=== PATIENT | male | born 1955 | race Caucasian/White ===

== ENCOUNTER → 2016-10-18 | Outpatient (CLI) | payer BC ==
--- NOTE | 2016-10-19 02:24 | REP ---
Clinical: Back pain. Technique: AP, lateral, bilateral oblique, and coned-down views of the lumbosacral spine. Findings: Alignment and lordosis maintained. No acute fracture / compression injury or subluxation. Moderate multilevel degenerative changes include endplate sclerosis with subtle anterior spurring. Minimal disc space narrowing at the T12-L1, L1-L2 levels suggested. Impression: Mild to moderate multilevel degenerative changes suggested. Signed by Giovanny Meng MD 10/19/2016 02:15 A
--- NOTE | 2016-10-19 02:27 | REP ---
Clinical: Back and pelvic pain. Technique: Single AP view of the pelvis. Findings: Osseous structures and joint spaces appear intact, symmetric, and the relatively normal for age. Subtle lipping along the superior acetabular margins along with increased sclerosis and mild symmetric superior joint space narrowing is suggested. No evidence for acute or healed fracture/dislocation. No periarticular calcifications are identified. Surrounding soft tissues appear normal. Impression: Mild symmetric age-related changes to the bilateral hip joints. Signed by Giovanny Meng MD 10/19/2016 02:19 A
--- NOTE | 2016-10-19 02:28 | REP ---
Clinical: Pain. Technique: Neutral and frog lateral views of the right hip. Findings: Superior joint space narrowing is appreciated with subchondral sclerosis and subtle lipping along the acetabular margin. No periarticular calcifications are appreciated. Osseous structures otherwise appear normal. No evidence for acute or healed fracture/dislocation. Impression: Mild age-related degenerative changes suggested. Signed by Giovanny Meng MD 10/19/2016 02:20 A
== END | disposition home or self-care (01) ==
LOC: M RAD 16:45
PROVIDERS: ATTEND Family Medicine
DX: M54.9 Dorsalgia, unspecified (principal); M16.11 Unilateral primary osteoarthritis, right hip; M51.35 Other intervertebral disc degeneration, thoracolumbar region; M51.06 Intervertebral disc disorders with myelopathy, lumbar region

== ENCOUNTER → 2018-03-06 | Outpatient (REF) | payer OTHER ==
[2018-03-06 13:14] LABS: HEMATOCRIT 43.7 % (42.0-52.0); HEMOGLOBIN 14.8 g/dl (13.5-17.5); MEAN CORPUSCULAR HEMOGLOBIN 31.7 pg (27.0-33.0); MEAN CORPUSCULAR HGB CONC 33.9 g/dl (32.0-36.5); MEAN CORPUSCULAR VOLUME 93.6 fl (80.0-96.0); PLATELET COUNT, AUTOMATED 217 10^3/uL (150-450); RED BLOOD COUNT 4.67 10^6/uL (4.30-6.10); WHITE BLOOD COUNT 6.9 10^3/uL (4.0-10.0)
[2018-03-06 13:24] LABS: INR 0.83; PARTIAL THROMBOPLASTIN TIME 30.6 SECONDS (26.8-37.9); PROTHROMBIN TIME 11.4 SECONDS (12.4-14.5)
[2018-03-06 13:53] LABS: ALBUMIN 4.1 GM/DL (3.2-5.2); ALBUMIN/GLOBULIN RATIO 1.41 (1.00-1.93); ALKALINE PHOSPHATASE 82 U/L (45-117); ALT/SGPT 28 U/L (12-78); ANION GAP 5 MEQ/L (8-16); AST/SGOT 25 U/L (7-37); BILIRUBIN,TOTAL 0.8 MG/DL (0.2-1.0); BLOOD UREA NITROGEN 13 MG/DL (7-18); CALCIUM LEVEL 9.1 MG/DL (8.8-10.2); CARBON DIOXIDE LEVEL 29 MEQ/L (21-32); CHLORIDE LEVEL 107 MEQ/L (98-107); GLOMERULAR FILTRATION RATE > 60.0 (>49); GLUCOSE, FASTING 82 MG/DL (70-100); POTASSIUM SERUM 4.4 MEQ/L (3.5-5.1); SODIUM LEVEL 141 MEQ/L (136-145)
== END ==
LOC: M SFHCPLAZ 11:53
DX: Z01.818 Encounter for other preprocedural examination (principal)

== ENCOUNTER 2018-10-25 09:11 | Emergency (ER) | payer OTHER, SELFPAY ==
[~2018-10-25] VITALS: Ht 172.7 cm; Wt 84.8 kg
[2018-10-25] MEDS ORDERED: IBUP-1022 (09:20)
--- NOTE | 2018-10-25 10:26 | REP ---
Clinical: Left groin pain. Technique: Real time uribe scale and color evaluation using curved array transducer. Findings: Ultrasound examination of the left groin with right groin for comparison demonstrates no hernia. No fluid collection or mass lesion identified. Left-sided lymph nodes at the site of pain/palpable mass are identified measuring 2.2 x 1.1 x 1.4 cm, 1.3 x 0.8 x 0.8 cm, and 4.1 x 1.5 x 3.5 cm and appear mildly prominent and hyperemic as compared to a normal lymph nodes in the right groin. Impression: Findings compatible with left inguinal adenopathy. No hernia. Electronically Signed by Giovanny Meng MD 10/25/2018 10:17 A
[2018-10-25 11:06] LABS: BASO # 0.1 10^3/uL (0.0-0.2); BASO % 0.7 % (0.0-1.0); EOS # 0.2 10^3/uL (0.0-0.50); EOS % 2.1 % (0.0-3.0); HEMATOCRIT 45.5 % (42.0-52.0); HEMOGLOBIN 15.4 g/dl (13.5-17.5); LYMPH # 1.3 10^3/uL (1.5-4.5); LYMPH % 17.4 % (24.0-44.0); MEAN CORPUSCULAR HEMOGLOBIN 31.4 pg (27.0-33.0); MEAN CORPUSCULAR HGB CONC 33.8 g/dl (32.0-36.5); MEAN CORPUSCULAR VOLUME 92.9 fl (80.0-96.0); MONO # 0.6 10^3/uL (0.0-0.8); MONO % 8.3 % (0.0-5.0); NEUTROPHILS # 5.2 10^3/uL (1.8-7.7); NEUTROPHILS % 71.4 % (36.0-66.0); PLATELET COUNT, AUTOMATED 204 10^3/uL (150-450); WHITE BLOOD COUNT 7.2 10^3/uL (4.0-10.0)
[2018-10-25 11:35] LABS: ALBUMIN 3.7 GM/DL (3.2-5.2); ALT/SGPT 50 U/L (12-78); BILIRUBIN,DIRECT 0.2 MG/DL (0.0-0.2); BILIRUBIN,TOTAL 0.6 MG/DL (0.2-1.0); BLOOD UREA NITROGEN 15 MG/DL (7-18); CALCIUM LEVEL 8.5 MG/DL (8.8-10.2); CARBON DIOXIDE LEVEL 28 MEQ/L (21-32); CHLORIDE LEVEL 107 MEQ/L (98-107); CREATININE FOR GFR 0.85 MG/DL (0.70-1.30); GLOMERULAR FILTRATION RATE > 60.0 (>49); GLUCOSE, FASTING 106 MG/DL (70-100); LIPASE 108 U/L (73-393); SODIUM LEVEL 139 MEQ/L (136-145); TOTAL PROTEIN 6.6 GM/DL (6.4-8.2)
[2018-10-25] MEDS ORDERED: ISOVUE-370 76% 100ML VIAL (Q9967) As Ordered ONE (11:46)
--- NOTE | 2018-10-25 12:21 | REP ---
Clinical: Left lower abdominal and left groin pain. Technique: Axial contrast enhanced images from the lung bases to the pubic symphysis using 100 ml Isovue 370 intravenous contrast material with coronal and sagittal re-formations. Findings: With regards to the patient's symptoms, there is inflammatory adenopathy at the level of the left groin with the largest hyperemic lymph node measuring approximately 3.1 x 2.0 cm with very subtle inflammatory stranding in the surrounding subcutaneous tissue. These findings are of uncertain etiology and warrant further investigation. Fatty infiltration to the liver without focal hepatic lesion. Spleen, pancreas, gallbladder, bilateral adrenal glands and kidneys are normal. The enteric system is without obstruction or acute inflammatory process. Normal terminal ileum and appendix identified in the right lower quadrant. Scattered sigmoid diverticula noted without acute diverticulitis. Pelvis demonstrates normal bladder and age appropriate prostate/seminal vesicles. Evidence of prior right inguinal hernia repair. No left inguinal hernia noted. No ascites. No free air. No adenopathy. Abdominal aorta without aneurysm or dissection. Impression: 1. Inflammatory adenopathy in the left groin. Electronically Signed by Giovanny Meng MD 10/25/2018 12:13 P
[2018-10-25] MEDS ORDERED: DOXYCYCLINE HYCLATE 100 MG TAB PO ONE (12:30)
[2018-10-25] MEDS ORDERED: cefTRIAXone SOD 2 GM in D5W MINI-BAG PLUS 50 ML IV ONE (12:30)
[2018-10-25] MEDS ORDERED: DOXY100C37 PO (12:36)
[2018-10-25 13:13] VITALS: BP 135/86
[2018-10-25 13:19] LABS: CHLAMYDIA DNA AMPLIFICATION NEGATIVE (NEGATIVE); GC DNA AMPLIFICATION NEGATIVE (NEGATIVE)
--- NOTE | 2018-10-25 13:46 | ED PDOC ---
Post-Departure Follow-Up dr madsen faxed formal report of pe;lvic us for fu Beck Treviño MD Oct 25, 2018 13:46
--- NOTE | 2018-10-25 13:49 | ED PDOC ---
Post-Departure Follow-Up ct abd/p also faxed to dr madsen for fu Beck Treviño MD Oct 25, 2018 13:49
== END 2018-10-25 13:16 | disposition home or self-care (01) ==
LOC: M ED 09:11
DX: R59.0 Localized enlarged lymph nodes (principal); Z87.891 Personal history of nicotine dependence
CPT/HCPCS: 36415; 74177; 76857; 80048; 80076; 81001; 83690; 85025; 87491; 87591; 96374; 99284; J0696; Q9967

== ENCOUNTER → 2018-11-22 | Outpatient (REF) | payer MEDICAID ==
[~2018-11-22] MED LIST: DOXY100C37 PO; IBUP-1022
[2018-11-22 18:27] LABS: BASO # 0.1 10^3/uL (0.0-0.2); BASO % 1.1 % (0.0-1.0); EOS # 0.2 10^3/uL (0.0-0.50); EOS % 2.5 % (0.0-3.0); HEMOGLOBIN 16.2 g/dl (13.5-17.5); LYMPH # 1.5 10^3/uL (1.5-4.5); LYMPH % 19.4 % (24.0-44.0); MEAN CORPUSCULAR HEMOGLOBIN 31.1 pg (27.0-33.0); MEAN CORPUSCULAR HGB CONC 33.8 g/dl (32.0-36.5); MEAN CORPUSCULAR VOLUME 92.1 fl (80.0-96.0); MONO # 0.5 10^3/uL (0.0-0.8); MONO % 6.7 % (0.0-5.0); NEUTROPHILS # 5.3 10^3/uL (1.8-7.7); PLATELET COUNT, AUTOMATED 229 10^3/uL (150-450); RED BLOOD COUNT 5.21 10^6/uL (4.30-6.10); WHITE BLOOD COUNT 7.5 10^3/uL (4.0-10.0)
[2018-11-22 18:31] LABS: ALBUMIN 4.3 GM/DL (3.2-5.2); ALT/SGPT 38 U/L (12-78); BLOOD UREA NITROGEN 15 MG/DL (7-18); CALCIUM LEVEL 8.9 MG/DL (8.8-10.2); CARBON DIOXIDE LEVEL 26 MEQ/L (21-32); CHLORIDE LEVEL 106 MEQ/L (98-107); CHOLESTEROL LEVEL 237 MG/DL (<200); CHOLESTEROL RISK RATIO 2.693 (<5); FREE T4 1.85 NG/DL (0.76-1.46); GLOMERULAR FILTRATION RATE > 60.0 (>49); GLUCOSE, FASTING 105 MG/DL (70-100); HDL CHOLESTEROL 88 MG/DL (>40); LDL CHOLESTEROL 137 MG/DL (<100); NON-HDL-C 149 MG/DL; POTASSIUM SERUM 4.8 MEQ/L (3.5-5.1); SODIUM LEVEL 138 MEQ/L (136-145); TOTAL PROTEIN 7.6 GM/DL (6.4-8.2); TRIGLYCERIDES LEVEL 58 MG/DL (<150)
[2018-11-22 18:34] LABS: TOTAL 25(OH) VITAMIN D 15.7 NG/ML (30.0-100.0)
[2018-11-22 18:46] LABS: APPEARANCE, URINE CLEAR (CLEAR); BACTERIA, URINE AUTO NEGATIVE (NEGATIVE); BILIRUBIN, URINE AUTO NEGATIVE (NEGATIVE); BLOOD, URINE BLOOD NEGATIVE (NEGATIVE); COLOR, URINE YELLOW (YELLOW); GLUCOSE, URINE (UA) AUTO NEGATIVE (NEGATIVE); KETONE, URINE AUTO NEGATIVE (NEGATIVE); LEUKOCYTE ESTERASE, URINE AUTO NEGATIVE (NEGATIVE); MUCUS, URINE SMALL (NEGATIVE); NITRITE, URINE AUTO NEGATIVE (NEGATIVE); PROTEIN, URINE AUTO NEGATIVE (NEGATIVE); RBC, URINE AUTO 1 /HPF (0-3); SPECIFIC GRAVITY URINE AUTO 1.014 (1.002-1.035); SQUAMOUS EPITHELIAL CELL UR AU 0 /HPF (0-6); UROBILINOGEN, URINE AUTO 0.2 mg/dL (0.0-2.0); WBC, URINE AUTO 7 /HPF (0-3)
[2018-11-22 18:47] LABS: HEMOGLOBIN A1c 5.5 %
[2018-11-24 14:22] LABS: Lyme Disease IgG/IgM Antibodie <0.91 ISR (0.00-0.90); Lyme Disease IgM Ab Quantitati <0.80 index (0.00-0.79)
== END ==
LOC: M LAB REF 16:50
PROVIDERS: ATTEND Family Medicine
DX: Z12.5 Encounter for screening for malignant neoplasm of prostate (principal); Z13.228 Encounter for screening for other metabolic disorders; Z72.89 Other problems related to lifestyle; I10 Essential (primary) hypertension

== ENCOUNTER 2019-01-17 10:44 | Emergency (ER) | payer MEDICAID, OTHER ==
[2019-01-17 10:45] VITALS: BP 161/80
[2019-01-17] MEDS ORDERED: VITA500045 (10:51)
[2019-01-17] MEDS ORDERED: ATOR1TAB19 (10:51)
[2019-01-17] MEDS ORDERED: GABA-1171 (10:51)
[2019-01-17] MEDS ORDERED: FLON1SPR NARES (11:32)
[2019-01-17] MEDS ORDERED: AUGM875T28 PO (11:32)
[2019-01-18] MEDS ORDERED: ONDA4TAB6 PO (12:46)
[2019-01-18] MEDS ORDERED: ZITHTAB PO (12:46)
== END 2019-01-17 11:39 | disposition home or self-care (01) ==
LOC: M ED 10:44
DX: J32.9 Chronic sinusitis, unspecified (principal); E78.5 Hyperlipidemia, unspecified; Z87.891 Personal history of nicotine dependence; Z79.899 Other long term (current) drug therapy

== ENCOUNTER 2019-01-18 10:45 | Emergency (ER) | payer OTHER ==
[~2019-01-18] VITALS: Ht 175.3 cm; Wt 79.6 kg
[~2019-01-18 10:45] MED LIST changes: +ATOR1TAB19; +AUGM875T28 PO; +FLON1SPR NARES; +GABA-1171; +VITA500045
[2019-01-18] MEDS ORDERED: ONDANSETRON 4 MG ORAL DISINTEGRATING TAB (Q0162 PER 1MG) PO ONE (12:15)
[2019-01-18 12:37] VITALS: BP 146/86
[2019-01-18] MEDS ORDERED: ONDA4TAB6 PO (12:46)
[2019-01-18] MEDS ORDERED: ZITHTAB PO (12:46)
== END 2019-01-18 13:03 | disposition home or self-care (01) ==
LOC: M ED 10:45
DX: R11.10 Vomiting, unspecified (principal); R10.9 Unspecified abdominal pain; T36.1X5A Adverse effect of cephalosporins and other beta-lactam antibiotics, initial encounter; J32.9 Chronic sinusitis, unspecified; I10 Essential (primary) hypertension; E78.5 Hyperlipidemia, unspecified; Z88.0 Allergy status to penicillin; Z79.899 Other long term (current) drug therapy
CPT/HCPCS: 99283; Q0162

== ENCOUNTER 2019-04-04 09:37 | Day surgery (SDC) | payer OTHER ==
[~2019-04-04] VITALS: Ht 175.3 cm; Wt 78.4 kg
[~2019-04-04 09:37] MED LIST changes: -ATOR1TAB19; +ATOR1TAB19 PO; +CETI10CH PO; -GABA-1171; +GABA-1171 PO; -IBUP-1022; +IBUP-1022 PO; +LIDOCAINE 1% MDV 20ML VIAL SQ PRN; +LOSA50TA88 PO; +ONDA4TAB6 PO; -VITA500045; +VITA500045 PO; +ZITHTAB PO
[2019-04-04] MEDS ORDERED: ROPIvacaine 0.5% 30 ML INJECTION (J2795 PER 1MG) ONE (09:38)
[2019-04-04] MEDS ORDERED: EPINEPHrine INJ 1 MG/ML 1ML AMP ONE (09:38)
[2019-04-04] MEDS ORDERED: LIDOCAINE 1% MDV 20ML VIAL ONE (09:38)
[2019-04-04] MEDS ORDERED: PROPOFOL 200 MG/20 ML VIAL As Ordered ONE (09:58)
[2019-04-04] MEDS ORDERED: LIDOCAINE 2% INJ 100 MG/5 ML SDV (FOR ANES.) As Ordered ONE (09:58)
[2019-04-04] MEDS ORDERED: ROCURONIUM BROMIDE 50 MG/5 ML VIAL As Ordered ONE ×2 (09:59→16:53)
[2019-04-04] MEDS ORDERED: LR 1,000 ML IV ONE (10:00)
[2019-04-04] MEDS ORDERED: dexameTHASONE 4 MG/ML 1ML VIAL (J1100) As Ordered ONE ×2 (10:00→10:01)
[2019-04-04] MEDS ORDERED: ONDANSETRON 4MG/2ML VIAL (J2405) As Ordered ONE (10:00)
[2019-04-04] MEDS ORDERED: MIDAZOLAM INJ 2 MG/2 ML VIAL (J2250) As Ordered ONE ×2 (10:14→10:21)
[2019-04-04] MEDS ORDERED: fentaNYL 100 MCG/2 ML INJECTION (J3010) As Ordered ONE ×2 (10:14→10:21)
[2019-04-04] MEDS: MIDAZOLAM INJ 2 MG/2 ML VIAL (J2250) IV SCH (10:40)
[2019-04-04] MEDS: fentaNYL 100 MCG/2 ML INJECTION (J3010) IV SCH ×2 (10:40→10:44)
[2019-04-04] MEDS ORDERED: LIDOCAINE 1% MDV 20ML VIAL As Ordered ONE (12:17)
[2019-04-04] MEDS ORDERED: EPINEPHrine 1MG/ML INJ 30ML MD-VIAL As Ordered ONE (12:17)
[2019-04-04] MEDS ORDERED: ACETAMINOPHEN 1000MG 100ML IV BTL (OFIRMEV) (J0131 PER 10MG) As Ordered ONE (13:26)
[2019-04-04] MEDS ORDERED: SUGAMMADEX SODIUM 500 MG/5 ML VIAL (BRIDION) As Ordered ONE (13:48)
[2019-04-04] MEDS ORDERED: METOCLOPRAMIDE INJ 10MG/2ML VIAL (J2765) IV PRN (15:45)
[2019-04-04] MEDS ORDERED: PERCOCET 5MG/325MG TAB PO PRN (15:45)
[2019-04-04] MEDS ORDERED: fentaNYL 100 MCG/2 ML INJECTION (J3010) IV PRN (15:45)
[2019-04-04] MEDS ORDERED: LR 1,000 ML IV SCH ×2 (15:45)
[2019-04-04] MEDS ORDERED: ONDANSETRON 4MG/2ML VIAL (J2405) IV PRN (15:45)
[2019-04-04 17:05] VITALS: BP 169/81
--- NOTE | 2019-04-05 13:24 | RO ---
DATE OF SURGERY: 04/04/2019 PREOPERATIVE DIAGNOSES: 1. Left shoulder re-tear of rotator cuff. 2. Left shoulder impingement. POSTOPERATIVE DIAGNOSES: 1. Left shoulder re-tear of prior rotator cuff repair. 2. Left shoulder impingement. 3. Left shoulder degenerative labral tear. 4. Left shoulder chondromalacia. PROCEDURES: 1. Left shoulder revision arthroscopic rotator cuff repair. 2. Left shoulder arthroscopic chondroplasty, labral debridement, and bursectomy. SURGEON: Alfonzo Arellano MD NAIL PROFESSIONAL: Abhi Romero PA-C ANESTHESIA: Preoperative nerve block with general anesthesia. INTRAVENOUS (IV) FLUIDS: Lactated Ringer. ESTIMATED BLOOD LOSS: 5 mL. IMPLANTS: Arthrex Peak 4.75 mm SwiveLock anchor times three and Arthrex 5.5 mm BioComposite corkscrew anchor with suture tape times one. CLOSURE: Nylon. DESCRIPTION OF PROCEDURE: The patient was identified in the preoperative holding area. The left shoulder marked by me. He had an interscalene nerve block by anesthesia. He was brought to the operating room, placed supine on a well- padded operating room (OR) table with the beanbag. General anesthesia was induced. Examination under anesthesia revealed 170 degrees of forward flexion, 80 of external rotation with his arm at his side. No increased anterior or posterior translation. He was then placed into the [id number] lateral decubitus position with an axillary roll, and all bony prominences were well padded. He had bilateral sequential compression devices (SCDs) for deep venous thrombosis (DVT) prophylaxis. He received appropriate IV antibiotics within 1 hour of incision. The left arm was placed into the Arthrex STaR (Shoulder Traction and Rotation) Sleeve lateral decubitus traction devine with 10 pounds of traction. The left shoulder was then prepped and draped in the normal sterile fashion with ChloraPrep. Prior to incision, time-out was performed per hospital protocol. Gordon Romero was present for the entire procedure and participated in all essential portions of the procedure. This included patient positioning and draping, holding the arthroscope, retrieving sutures, using the mallet and awl to assist with anchor placement, and cutting sutures. Given that this was a revision rotator cuff repair, a highly-skilled behavioral assistant was required. A standard posterior viewing portal made with #11 blade. 30-degree arthroscope introduced into the joint. Diagnostic arthroscopy revealed grade 1-2 chondromalacia in the periphery of the humeral head, grade 1 in the glenoid. The patient had already gotten a prior biceps tenodesis; one of the biceps was absent. There was some degenerative fraying of the anterior labrum. No loose bodies. Posterior rotator cuff was intact. There was partial articular tearing of the supraspinatus. No full thickness re-tear. Surprisingly, there was a re-tear of the subscapularis with a visible suture and shredded tendon visible. A working portal was established in the rotator interval and a rotator interval release performed with cautery. This suture had torn through the subscapularis, the prior TigerTape suture that was cut and partially removed. Accessory superolateral portal developed and the shaver used to clear soft tissue off the lesser tuberosity. There was further liftoff and poor tension on the subscapularis. I decided this required revision repair. A Scorpion was used to pass FiberTape through the subscapularis tendon medial to the prior pass, so this was through better tissue, and then that was loaded through a SwiveLock anchor. A new socket was created with awl. The anchor was docked, sutures tensioned, and then the anchor inserted by hand with fantastic fixation. This nicely restored the subscapularis. A spinal needle was placed percutaneously through the subacromial space through the joint into the area of the supraspinatus tear. The scope was then placed in the subacromial space. Extensive scar tissue was encountered. Bursectomy performed with shaver and cautery through a lateral portal. The area of partial tearing with a spinal needle was palpated with a switching stick and was felt to be a very high-grade tear with only some residual bursal surface remaining. Cautery was used to turn this into a full-thickness tear. Shaver was used to clear all soft tissue off the greater tuberosity to create a bleeding surface. At this point, I was in favor of a double-row repair. A 5.5 mm corkscrew preloaded with SutureTape was placed just off the articular surface and four limbs of suture passed in a horizontal mattress fashion with the Scorpion. TigerTape was passed separately through the far posterior portion of the tear in a dog-ear reduction fashion. Those sutures then brought out in a crossing fashion to two 4.75 mm SwiveLock anchors laterally. Both lateral anchors also had fantastic fixation, and this nicely restored a box and X configuration. There were no dog-ears. The shoulder was rotated. There was no liftoff or buckling. This completed the rotator cuff repair. The shoulder was irrigated and drained. Portals closed with nylon suture, and a bulky sterile dressing was applied. He was placed into a sling and then transferred to the postanesthesia care unit (PACU) in stable condition. CARLOS
== END 2019-04-04 17:20 | disposition home or self-care (01) ==
LOC: M SDC 09:37
PROVIDERS: ATTEND Orthopaedic Surgery
DX: M75.102 Unspecified rotator cuff tear or rupture of left shoulder, not specified as traumatic (principal); M75.42 Impingement syndrome of left shoulder; M94.212 Chondromalacia, left shoulder; I10 Essential (primary) hypertension; E78.5 Hyperlipidemia, unspecified; Z87.891 Personal history of nicotine dependence; Z88.0 Allergy status to penicillin; Z79.899 Other long term (current) drug therapy
CPT/HCPCS: 29823; 29826; 29827; 64415; C1713; J0131; J0690; J1100; J2250; J2405; J2795; J3010

== ENCOUNTER 2019-06-11 11:27 | Emergency (ER) | payer OTHER ==
[~2019-06-11] VITALS: Ht 172.7 cm; Wt 79.1 kg
[~2019-06-11 11:27] MED LIST changes: -LIDOCAINE 1% MDV 20ML VIAL SQ PRN
--- NOTE | 2019-06-11 13:00 | REP ---
Right knee five views : There is no fracture or dislocation. Mineralization and joint spaces are normal. There are no calcifications or foreign bodies. Impression: Negative right knee . Electronically Signed by Mario Alberto Merritt MD 06/11/2019 12:52 P
[2019-06-11] MEDS ORDERED: TYLE650T35 PO (13:07)
[2019-06-11 13:12] VITALS: BP 146/89
== END 2019-06-11 13:13 | disposition home or self-care (01) ==
LOC: M ED 11:27
DX: M17.11 Unilateral primary osteoarthritis, right knee (principal); I10 Essential (primary) hypertension; Z88.0 Allergy status to penicillin

== ENCOUNTER 2019-06-27 11:26 | Emergency (ER) | payer OTHER ==
[~2019-06-27] VITALS: Ht 167.6 cm; Wt 78.5 kg
[~2019-06-27 11:26] MED LIST changes: +TYLE650T35 PO
[2019-06-27 13:53] LABS: BASO # 0.1 10^3/uL (0.0-0.2); BASO % 0.6 % (0.0-1.0); EOS # 0.1 10^3/uL (0.0-0.5); EOS % 1.5 % (0.0-3.0); HEMATOCRIT 47.6 % (42.0-52.0); HEMOGLOBIN 16.2 g/dl (13.5-17.5); LYMPH # 2.1 10^3/uL (1.5-5.0); LYMPH % 22.2 % (24.0-44.0); MEAN CORPUSCULAR VOLUME 94.1 fl (80.0-96.0); MONO % 10.8 % (0.0-5.0); NEUTROPHILS % 64.6 % (36.0-66.0); PLATELET COUNT, AUTOMATED 234 10^3/uL (150-450); RED BLOOD COUNT 5.06 10^6/uL (4.30-6.10); WHITE BLOOD COUNT 9.3 10^3/uL (4.0-10.0)
--- NOTE | 2019-06-27 14:12 | REP ---
RIGHT FIRST DIGIT: Four views of the right first digit are performed. No acute fracture or dislocation is seen. There is slight narrowing and subchondral sclerosis at the first metacarpal phalangeal joint. There is moderate narrowing with subchondral sclerosis and cystic change and mild spurring at the interphalangeal joint. There is a small focal cortical erosion at the anterior surface of the distal phalanx. This is of uncertain significance. I cannot exclude osteomyelitis. Electronically Signed by Mario Alberto Moore MD 06/28/2019 09:09 A
[2019-06-27 14:23] LABS: ALBUMIN 4.3 GM/DL (3.2-5.2); ALT/SGPT 29 U/L (12-78); BILIRUBIN,DIRECT 0.3 MG/DL (0.0-0.2); BILIRUBIN,TOTAL 1.4 MG/DL (0.2-1.0); BLOOD UREA NITROGEN 14 MG/DL (7-18); CALCIUM LEVEL 9.5 MG/DL (8.8-10.2); CARBON DIOXIDE LEVEL 27 MEQ/L (21-32); CHLORIDE LEVEL 106 MEQ/L (98-107); CREATININE FOR GFR 0.98 MG/DL (0.70-1.30); GLOMERULAR FILTRATION RATE > 60.0 (>49); GLUCOSE, FASTING 93 MG/DL (70-100); POTASSIUM SERUM 4.9 MEQ/L (3.5-5.1); SODIUM LEVEL 138 MEQ/L (136-145)
[2019-06-27] MEDS ORDERED: NS 500 ML IV ONE (15:15)
[2019-06-27] MEDS ORDERED: ISOVUE-370 76% 100ML VIAL (Q9967) As Ordered ONE (15:25)
[2019-06-27 16:03] LABS: C REACTIVE PROTEIN QUANTITATIV 0.55 MG/DL (0.00-0.30)
[2019-06-27] MEDS ORDERED: TERB250T12 PO (17:07)
[2019-06-27] MEDS ORDERED: BACT800T5 PO (17:07)
[2019-06-27 17:21] VITALS: BP 158/78
[2019-06-27 17:49] LABS: ERYTHROCYTE SEDIMENTATION RATE 2 mm/hr (0-20)
--- NOTE | 2019-06-27 18:58 | REP ---
A CT of the right hand with attention to the right thumb: Comparison is the plain film study performed earlier today. There is soft tissue edema of the left thumb, particularly distally. There is a cortical defect in the distal phalanges, similar to the comparison plain film study. However, by CT there is no periosteal reactive change, periosteal elevation, or lytic or blastic skeletal changes to suggest osteomyelitis. This may represent a congenital cortical defect. There are accessory ossicles at the base of the distal phalange. There is a small cyst in the head of the proximal phalange. Impression: Soft tissue edema of the thumb. No definite evidence of osteomyelitis at this time. Accessory ossicles at the base of the thumb distal phalange. Bone cyst in the head of the thumb proximal phalange. If symptoms persist or worsen, consider follow-up evaluation. Electronically Signed by Mario Alberto Merritt MD 06/27/2019 06:49 P
== END 2019-06-27 17:22 | disposition home or self-care (01) ==
LOC: M ED 11:26
DX: L03.011 Cellulitis of right finger (principal); L03.123 Acute lymphangitis of right upper limb; Z88.3 Allergy status to other anti-infective agents; Z88.0 Allergy status to penicillin
CPT/HCPCS: 73140; 73200; 80048; 80076; 85025; 85652; 86140; 87040; 99284; Q9967

== ENCOUNTER 2019-08-05 12:52 | Emergency (ER) | payer OTHER ==
[~2019-08-05] VITALS: Ht 170.2 cm; Wt 77.3 kg
[~2019-08-05 12:52] MED LIST changes: +BACT800T5 PO; +TERB250T12 PO
[2019-08-05] MEDS ORDERED: LOSA50TA88 (13:16)
[2019-08-05 13:56] LABS: INFLUENZA A AMPLIFICATION NEGATIVE (NEGATIVE); INFLUENZA B AMPLIFICATION NEGATIVE (NEGATIVE)
[2019-08-05] MEDS ORDERED: FLON1SPR NARES (14:01)
[2019-08-05] MEDS ORDERED: AFRI0.058 (14:02)
[2019-08-05] MEDS ORDERED: TESS100C PO (14:10)
--- NOTE | 2019-08-05 14:29 | REP ---
PA and lateral chest: Comparison is an 2016. The lung diggs are clear. The cardiac size is normal. The arjun, mediastinum, and skeletal structures are unremarkable. Impression: Negative PA and lateral chest. There is no interval change. Electronically Signed by Mario Alberto Merritt MD 08/05/2019 02:21 P
[2019-08-05 14:44] VITALS: BP 180/100
== END 2019-08-05 14:50 | disposition home or self-care (01) ==
LOC: M ED 12:52
DX: J06.9 Acute upper respiratory infection, unspecified (principal); I10 Essential (primary) hypertension; Z87.891 Personal history of nicotine dependence; Z88.0 Allergy status to penicillin; Z79.899 Other long term (current) drug therapy

== ENCOUNTER → 2020-03-14 | Outpatient (CLI) | payer OTHER ==
[~2020-03-14] MED LIST changes: +AFRI0.058; +LOSA50TA88; +TESS100C PO
== END ==
LOC: M LAB 10:43
PROVIDERS: ATTEND Nurse Practitioner Women's Health
DX: Z12.5 Encounter for screening for malignant neoplasm of prostate (principal)

== ENCOUNTER 2020-07-06 11:54 | Emergency (ER) | payer OTHER ==
[~2020-07-06] VITALS: Ht 172.7 cm; Wt 84.5 kg
[~2020-07-06 11:54] MED LIST changes: +ACET650T61 PO; -TYLE650T35 PO
[2020-07-06 12:23] LABS: BASO # 0.1 10^3/uL (0.0-0.2); EOS # 0.2 10^3/uL (0.0-0.5); HEMOGLOBIN 16.2 g/dl (13.5-17.5); LYMPH # 1.4 10^3/uL (1.5-5.0); LYMPH % 22.9 % (24.0-44.0); MEAN CORPUSCULAR HEMOGLOBIN 30.7 pg (27.0-33.0); MEAN CORPUSCULAR HGB CONC 33.1 g/dl (32.0-36.5); MONO # 0.5 10^3/uL (0.0-0.8); NEUTROPHILS % 64.8 % (36.0-66.0); PLATELET COUNT, AUTOMATED 197 10^3/uL (150-450); RED BLOOD COUNT 5.27 10^6/uL (4.30-6.10); WHITE BLOOD COUNT 6.2 10^3/uL (4.0-10.0)
[2020-07-06 12:34] LABS: INR 0.87
[2020-07-06] MEDS ORDERED: ISOVUE-370 76% 100ML VIAL As Ordered ONE (12:37)
[2020-07-06 12:53] LABS: ALBUMIN 4.2 GM/DL (3.2-5.2); BILIRUBIN,DIRECT 0.2 MG/DL (0.0-0.2); BILIRUBIN,TOTAL 0.8 MG/DL (0.2-1.0); CK-MB VALUE MASS 1.8 NG/ML (<3.6); FREE T4 1.9 NG/DL (0.76-1.46); MB/CK RELATIVE INDEX 1.38 (< OR =4); THYROID STIMULATING HORMONE 1.53 uIU/ML (0.358-3.740); TOTAL PROTEIN 7.5 GM/DL (6.4-8.2)
--- NOTE | 2020-07-06 13:16 | REPVR ---
PROCEDURE INFORMATION: Exam: XR Chest, 1 View Exam date and time: 07/06/2020 12:23 PM Age: 65 years old Clinical indication: Chest pain; Radiating TECHNIQUE: Imaging protocol: XR of the chest Views: 1 view. COMPARISON: CR Chest, 2 view PA, Lat 08/10/2016 4:40 PM FINDINGS: Lungs: Unremarkable. No consolidation. Pleural space: Unremarkable. No pleural effusion. No pneumothorax. Heart/Mediastinum: Unremarkable. No cardiomegaly. Bones/joints: Unremarkable. IMPRESSION: No evidence for acute pulmonary disease. Electronically signed by: Abundio Zheng On 07/06/2020 13:16:28 PM
--- NOTE | 2020-07-06 13:20 | ECGEPIP ---
[facility] - ED Test Date: 2020-07-06 Pat Name: MINE MCINTYRE Department: Room: - Gender: Male House Officer: guilherme : 1955 Requested By: Rachelle Tavera Order Number: [id number] Reading MD: Rachelle Tavera Measurements Intervals [place] Rate: 53 P: 57 FL: 192 QRS: 29 QRSD: 95 T: 39 QT: 426 QTc: 401 Interpretive Statements SINUS BRADYCARDIA POSSIBLE RIGHT VENTRICULAR CONDUCTION DELAY similar to prior EKG 08/10/16 Electronically Signed on 07-06-2020 13:20:38 EDT by Rachelle Tavera
--- NOTE | 2020-07-06 13:21 | REPVR ---
PROCEDURE INFORMATION: Exam: CT Angiography Chest With Contrast Exam date and time: 07/06/2020 12:50 PM Age: 65 years old Clinical indication: Pain; Other: Back; Additional info: Severe chest/abdominal pain; R/O taa/aaa TECHNIQUE: Imaging protocol: Computed tomographic angiography of the chest with intravenous contrast. 3D rendering (Not supervised by radiologist): MIP and/or 3D reconstructed images were created by the technologist. Radiation optimization: All CT scans at this facility use at least one of these dose optimization techniques: automated exposure control; mA and/or kV adjustment per patient size (includes targeted exams where dose is matched to clinical indication); or iterative reconstruction. Contrast material: ISOVUE 370; Contrast volume: 100 ml; Contrast route: INTRAVENOUS (IV); COMPARISON: CR PORTABLE CHEST X-RAY 07/06/2020 12:16 PM FINDINGS: Pulmonary arteries: Normal. No pulmonary emboli. Aorta: The thoracic aorta is nonaneurysmal and without evidence for dissection. Atherosclerotic vascular calcifications are noted. Lungs: Mild dependent atelectasis is present bilaterally. There is mild subpleural and centrilobular emphysematous disease, upper lobe predominant. The lungs are otherwise clear. The central airways appear patent. Pleural space: Unremarkable. No pneumothorax. No pleural effusion. Heart: Unremarkable. No cardiomegaly. No pericardial effusion. Mediastinal space: No mediastinal hematoma is identified. Lymph nodes: Subcentimeter short axis mediastinal lymph nodes are present, without pathologic mediastinal or hilar lymphadenopathy identified. Bones/joints: Degenerative changes involve the spine and shoulders. Soft tissues: Unremarkable. IMPRESSION: 1. Nonaneurysmal thoracic aorta without dissection. 2. No evidence for acute pulmonary disease. COMMENTS: Dedicated abdominal CT has been performed, and findings below the diaphragm will be reported separately. Electronically signed by: Abundio Zheng On 07/06/2020 13:20:42 PM
--- NOTE | 2020-07-06 13:26 | REPVR ---
PROCEDURE INFORMATION: Exam: CT Angiography Abdomen With Contrast Exam date and time: 07/06/2020 12:50 PM Age: 65 years old Clinical indication: Pain; Other: Back; Additional info: Severe chest/abdominal pain; R/O taa/aaa TECHNIQUE: Imaging protocol: Computed tomographic angiography images of the abdomen with intravenous contrast material. 3D rendering (Not supervised by radiologist): MIP and/or 3D reconstructed images were created by the technologist. Radiation optimization: All CT scans at this facility use at least one of these dose optimization techniques: automated exposure control; mA and/or kV adjustment per patient size (includes targeted exams where dose is matched to clinical indication); or iterative reconstruction. Contrast material: [id number]; Contrast volume: 100 ml; Contrast route: INTRAVENOUS (IV); COMPARISON: CT ABD/PEL W/IV CONTRAST ONLY 10/25/2018 11:41 AM FINDINGS: Aorta: The abdominal aorta is nonaneurysmal and without evidence for dissection. Atherosclerotic vascular calcifications are again present. Celiac trunk and mesenteric arteries: No occlusion or significant stenosis. Renal arteries: No occlusion or significant stenosis. Liver: Normal. No mass. Gallbladder and bile ducts: Normal. No calcified stones. No ductal dilation. Pancreas: Normal. No ductal dilation. Spleen: Normal. No splenomegaly. Adrenals: Normal. No mass. Kidneys and ureters: The right kidney contains a stable hypodense homogeneous 8 mm lesion. It appears otherwise unremarkable. The left kidney appears unremarkable. Stomach and bowel: The visualized unopacified small bowel is not significantly distended to suggest obstruction. The visualized large bowel is grossly unremarkable in appearance. Appendix: The appendix appears normal where partially included, and there is no inflammatory change in the region. Lymph nodes: Unremarkable. No enlarged lymph nodes. Intraperitoneal space: Unremarkable. No free air. No significant fluid collection. Bones/joints: Degenerative changes again involve the spine. Soft tissues: A small fat containing umbilical hernia is again present. IMPRESSION: 1. Nonaneurysmal abdominal aorta without evidence for dissection. 2. Small fat containing umbilical hernia, similar to 10/25/18. COMMENTS: See separate chest CT report for findings above the diaphragm. Electronically signed by: Abundio Zheng On 07/06/2020 13:26:19 PM
[2020-07-06] MEDS ORDERED: KETOROLAC 30 MG/ML 1ML VIAL IV ONE (13:45)
[2020-07-06] MEDS ORDERED: diazePAM 10MG/2ML SYRINGE (J3360 PER 5MG) IV ONE (13:45)
[2020-07-06] MEDS ORDERED: LOSARTAN 50MG TABLET PO STA (14:26)
[2020-07-06 14:43] VITALS: BP 186/89
[2020-07-06] MEDS ORDERED: IBUP-1022 PO (15:26)
[2020-07-06] MEDS ORDERED: ROBA750T4 PO (15:26)
[2020-07-06] MEDS ORDERED: LOSA50TA88 PO (15:26)
[2020-07-06 15:30] VITALS: BP 178/98
== END 2020-07-06 15:43 | disposition home or self-care (01) ==
LOC: M ED 11:54
DX: M54.6 Pain in thoracic spine (principal); I10 Essential (primary) hypertension; R00.1 Bradycardia, unspecified; E78.5 Hyperlipidemia, unspecified; M54.5 Low back pain; Z88.0 Allergy status to penicillin; Z79.899 Other long term (current) drug therapy
CPT/HCPCS: 71045; 71275; 74175; 80047; 80076; 82550; 82553; 83690; 83880; 84439; 84443; 85025; 85610; 93005; 93041; 94760; 96374; 96375; 99285; J1885; J3360; Q9967

== ENCOUNTER 2020-12-02 09:42 | Emergency (ER) | payer MEDICARE, OTHER ==
[~2020-12-02] VITALS: Ht 172.7 cm; Wt 84.1 kg
[~2020-12-02 09:42] MED LIST changes: +ROBA750T4 PO
[2020-12-02] MEDS ORDERED: ACETAMINOPHEN 500 MG TAB PO ONE (10:15)
[2020-12-02 10:24] VITALS: O2SAT 100
[2020-12-02 11:32] VITALS: BP 180/78
== END 2020-12-02 12:40 | disposition home or self-care (01) ==
LOC: M ED 09:42
DX: U07.1 COVID-19 (principal); I10 Essential (primary) hypertension; F12.10 Cannabis abuse, uncomplicated; Z88.1 Allergy status to other antibiotic agents; Z88.8 Allergy status to other drugs, medicaments and biological substances
CPT/HCPCS: 87804; 99284; M0239

== ENCOUNTER 2020-12-02 13:03 | Outpatient (CLI) | payer MEDICARE ==
--- NOTE | 2020-12-02 12:32 | HPEPDOC ---
General Date of Admission 12/02/2020 Date of Service: Dec 02, 2020 Attending Physician: NORM FIGUEROA MD Chief Complaint The patient is a 65-year-old male admitted with a reason for visit of Covid +. Source: Patient, RN/MD Exam Limitations: No limitations Timing/Duration: Day(s) Severity: Mild Associated Symptoms: Other (congestion, loss of taste, some rhinorrhea) History of Present Illness 65 yo M with a history of HTN who presents with a few days duration of congestion, some rhinorrhea, loss of taste and sense of smell and generalized malaise and found to have covid-19 infection without hypoxemia. He is now being admitted for short observation for bamlanivimab infusion as deemed appropriate by the ED provider. Home Medications Scheduled Losartan Potassium (Losartan Potassium) 50 Mg Tablet, 1 TAB PO DAILY Allergies Coded Allergies: amoxicillin (Verified Adverse Reaction, Mild, VOMITING, 07/06/20) clavulanic acid (Verified Adverse Reaction, Mild, 07/06/20) Past Medical History Medical History HTN Surgical History Rotator cuff surgery Hernia repair R inguinal hernia surgery Family History Significant Family History: No pertinent family hx Social History * Smoker: Denies Alcohol: occationally Drugs: denies Psychosocial History: No pertinent psych hx A-FIB/CHADSVASC A-FIB History Current/History of A-Fib/PAF?: No Current PO Anticoag Therapy: No Age/Risk Factor Scoring CHADSVASC: CHADSVASC Response (Comments) Value Age Risk Factor Age < 65 years old 0 Gender Risk Factor Male 0 Hx of CHF No 0 Hx of HTN Yes 1 Hx of Stroke/TIA/or VTE No 0 Hx of Diabetes No 0 Hx of Vascular Disease No 0 Total 1 Treatment Treatment ordered: NONE Reason Anticoagulant not given: Not indicated/[id number] Review of Systems Constitutional: Reports: Chills, Malaise; Denies: Fever, Night Sweats, Weakness, Fatigue, Weight Loss, Lethargy Eyes: Denies: Pain, Vision change ENT: Reports: Sinus Congestion, Post Nasal Drip; Denies: Head Aches, Ear Pain, Dysphagia, Sore Throat, Epistaxis Skin: Denies: Rash, Lesions, Breakdown Pulmonary: Reports: Cough (rare, dry); Denies: Dyspnea, Pleuritic Chest Pain Cardiovascular: Denies: Chest Pain, Palpitations, Orthopnea, Paroxysmal Noc. Dyspnea, Lt Headedness Gastrointestinal: Denies: Nausea, Vomiting, Abdominal Pain, Diarrhea Genitourinary: Denies: Dysuria, Frequency, Incontinence, Retention Hematologic: Denies: Bruising, Bleeding Excessively Endocrine: Denies: Polydipsia, Polyphagia, Polyuria, Heat Intolerance, Cold Intolerance, Other Endocrine Sx Musculoskeletal: Denies: Neck Pain, Back Pain, Joint Pain, Muscle Pain, Spasms Neurological: Reports: Other Symptoms (loss of taste and sense of smell); Denies: Weakness, Numbness, Change in speech, Confusion Psych: Reports: Mood Normal; Denies: Depression, Memory Issues Physical Examination General Exam: Positive: Alert, No Acute Distress Eye Exam: Positive: PERRLA, Conjunctiva & lids normal, EOMI; Negative: Sclera icteric ENT Exam: Positive: Atraumatic, Mucous membr. moist/pink, Pharynx Normal Neck Exam: Positive: Supple; Negative: JVD, thyromegaly Chest Exam: Positive: Clear to auscultation, Normal air movement Heart Exam: Positive: Rate Normal, Regular Rhythm, Normal S1, Normal S2; Negative: Murmurs, Rubs Abdomen Exam: Positive: Normal bowel sounds, Soft; Negative: Tenderness, Hepatospenomegaly Extremity Exam: Positive: Normal pulses; Negative: Clubbing, Cyanosis, Edema Skin Exam: Positive: Nl turgor and temperature; Negative: Breakdown, Lesion Neuro Exam: Positive: Normal Gait, Normal Speech, Cranial Nerves 3-12 NL, Reflexes 2+ Psych Exam: Positive: Mental status NL, Mood NL, Oriented x 3 Vital Signs HDS, afebrile, breathing comfortably on room air and saturating well Assessment/Plan 65 yo M with a history of HTN who presented with upper respiratory symptoms and found to have covid-19 infection and referred by the ED for bamlanivimab infusion. Covid-19 infection: -bamlanivimab infusion per protocol with PRN reaction meds as needed To discharge home after infusion. Plan / VTE VTE Prophylaxis Ordered?: No VTE Exclusion Mechanical Proph: Low Risk for VTE VTE Exclusion Pharmacological: At Low Risk for VTE NORM FIGUEROA MD Dec 02, 2020 12:32
[~2020-12-02 13:03] MED LIST changes: +ALBUTEROL 90 MCG/ACT 8GM HFA INHALER INH PRN; +ALBUTEROL SULFATE 2.5 MG/0.5 ML INH NEB SOLN INH PRN; +EPINEPHrine INJ 1 MG/ML 1ML AMP IM PRN; +NS 1,000 ML IV SCH; +diphenhydrAMINE 50MG/ML VIAL (J1200) IV PRN; +methylPREDNISolone 125MG 2ML VIAL IV PRN
[2020-12-02] MEDS ORDERED: BAMLANIVIMAB 700 MG in NS 250 ML IV ONE ×2 (13:20→15:00)
[2020-12-02 14:00] VITALS: BP 153/77
[2020-12-02 14:30] VITALS: BP 162/83
[2020-12-02 15:00] VITALS: BP 161/87
[2020-12-02 16:00] VITALS: BP 152/86
== END 2020-12-02 16:20 | disposition home or self-care (01) ==
LOC: M OPCLI4 13:03 → M 4MAIN 13:04 → M OPCLI4 16:20
PROVIDERS: ATTEND Internal Medicine
DX: U07.1 COVID-19 (principal); Z88.1 Allergy status to other antibiotic agents

== ENCOUNTER → 2021-07-22 | Outpatient (CLI) | payer MEDICAID, MEDICARE ==
[~2021-07-22] MED LIST changes: -ALBUTEROL 90 MCG/ACT 8GM HFA INHALER INH PRN; -ALBUTEROL SULFATE 2.5 MG/0.5 ML INH NEB SOLN INH PRN; +DOXY-443 PO; -DOXY100C37 PO; -EPINEPHrine INJ 1 MG/ML 1ML AMP IM PRN; -NS 1,000 ML IV SCH; -TERB250T12 PO; +TERB250T91 PO; -diphenhydrAMINE 50MG/ML VIAL (J1200) IV PRN; -methylPREDNISolone 125MG 2ML VIAL IV PRN
--- NOTE | 2021-07-23 09:48 | REP ---
INDICATION: ENCOUNTER SCREENING LUNG. COMPARISON: 07/06/2020 CT angio chest and the only prior TECHNIQUE: Axial noncontrast images from the thoracic inlet to the upper abdomen using low-dose lung screening technique (LDCT). As per the protocol only lung window images were sent to the read station for interpretation. FINDINGS: No new abnormal nodules, masses, or opacities have developed. Grossly, the mediastinum and pulmonary arjun are unchanged. Grossly, the imaged upper abdomen and imaged osseous structures are unchanged. IMPRESSION: Lung rads category 1 low-dose CT screening of the lungs. There are no abnormal nodules. There is no significant change compared to the prior exam. As per the revised Fleischner society criteria yearly screening is recommended if clinically relevant. <Electronically signed by Carlos García > 07/23/21 [id number]
== END ==
LOC: M RAD 13:06
PROVIDERS: ATTEND Pediatrics
DX: Z12.2 Encounter for screening for malignant neoplasm of respiratory organs (principal); Z87.891 Personal history of nicotine dependence

== ENCOUNTER 2021-12-20 12:24 | Emergency (ER) | payer MEDICARE, OTHER ==
[~2021-12-20] VITALS: Ht 172.7 cm; Wt 87.6 kg
[~2021-12-20 12:24] MED LIST changes: +LOSA50TA28; +LOSA50TA28 PO; -LOSA50TA88; -LOSA50TA88 PO
[2021-12-20] MEDS ORDERED: HYDR-3490 PO (12:41)
[2021-12-20] MEDS ORDERED: NITROGLYCERIN 0.4 MG SUBL TABLET SL PRN (12:45)
[2021-12-20] MEDS ORDERED: ASPIRIN 81 MG CHEW TABLET PO ONE (12:45)
[2021-12-20 13:21] LABS: BASO # 0.1 10^3/uL (0.0-0.2); BASO % 1.4 % (0.0-1.0); EOS # 0.2 10^3/uL (0.0-0.5); EOS % 2.3 % (0.0-3.0); HEMATOCRIT 45.5 % (42.0-52.0); HEMOGLOBIN 15.8 g/dl (13.5-17.5); LYMPH # 1.7 10^3/uL (1.5-5.0); LYMPH % 23.2 % (24.0-44.0); MEAN CORPUSCULAR HEMOGLOBIN 30.9 pg (27.0-33.0); MEAN CORPUSCULAR HGB CONC 34.7 g/dl (32.0-36.5); MONO # 0.6 10^3/uL (0.0-0.8); MONO % 7.6 % (2.0-8.0); NEUTROPHILS # 4.8 10^3/uL (1.5-8.5); NEUTROPHILS % 65.2 % (36.0-66.0); PLATELET COUNT, AUTOMATED 204 10^3/uL (150-450); RED BLOOD COUNT 5.11 10^6/uL (4.30-6.10); WHITE BLOOD COUNT 7.4 10^3/uL (4.0-10.0)
[2021-12-20 13:46] LABS: CK-MB VALUE MASS 1.1 NG/ML (<3.6); MB/CK RELATIVE INDEX 1.24 (< OR =4)
[2021-12-20 13:54] LABS: ALBUMIN 4.2 GM/DL (3.2-5.2); ALT/SGPT 37 U/L (12-78); BILIRUBIN,DIRECT 0.2 MG/DL (0.0-0.2); BILIRUBIN,TOTAL 0.7 MG/DL (0.2-1.0); BLOOD UREA NITROGEN 13 MG/DL (7-18); CALCIUM LEVEL 9.2 MG/DL (8.8-10.2); CARBON DIOXIDE LEVEL 28 MEQ/L (21-32); CHLORIDE LEVEL 107 MEQ/L (98-107); CREATININE FOR GFR 1.08 MG/DL (0.70-1.30); GLOMERULAR FILTRATION RATE > 60.0 (>49); GLUCOSE, FASTING 108 MG/DL (70-100); LIPASE 77 U/L (73-393); NT-PRO BNP 55 PG/ML (<125); POTASSIUM SERUM 4.2 MEQ/L (3.5-5.1); SODIUM LEVEL 140 MEQ/L (136-145); TOTAL PROTEIN 7.2 GM/DL (6.4-8.2)
[2021-12-20 14:32] LABS: CK-MB VALUE MASS 1.2 NG/ML (<3.6); MB/CK RELATIVE INDEX 1.3 (< OR =4)
[2021-12-20 15:00] VITALS: BP 149/92
== END 2021-12-20 15:22 | disposition home or self-care (01) ==
LOC: M ED 12:24
DX: R07.9 Chest pain, unspecified (principal); I10 Essential (primary) hypertension; E78.5 Hyperlipidemia, unspecified; M54.50 Low back pain, unspecified; Z88.1 Allergy status to other antibiotic agents; Z79.899 Other long term (current) drug therapy

== ENCOUNTER → 2022-08-26 | Outpatient (CLI) | payer MEDICARE, OTHER ==
[~2022-08-26] MED LIST changes: -AFRI0.058; +HYDR-3490 PO; +OXYM15SP2
== END ==
LOC: M SOG 08:48
PROVIDERS: ATTEND Orthopaedic Surgery
DX: M25.511 Pain in right shoulder (principal)

== ENCOUNTER → 2022-09-03 | Outpatient (CLI) | payer MEDICARE, OTHER | LOC: M PLAIMG 06:58 | PROVIDERS: ATTEND Orthopaedic Surgery | DX: M25.511 Pain in right shoulder (principal); M19.011 Primary osteoarthritis, right shoulder; S43.431A Superior glenoid labrum lesion of right shoulder, initial encounter; X58.XXXA Exposure to other specified factors, initial encounter; Y92.9 Unspecified place or not applicable; Y93.9 Activity, unspecified; Y99.9 Unspecified external cause status; M94.211 Chondromalacia, right shoulder; M85.621 Other cyst of bone, right upper arm ==

== ENCOUNTER → 2022-12-15 | Outpatient (REF) | payer MEDICARE, OTHER ==
[2022-12-15 17:59] LABS: ALBUMIN 4.1 G/DL (3.2-5.2); ALKALINE PHOSPHATASE 88 U/L (46-116); ALT/SGPT 42 U/L (7.0-40); AST/SGOT 33 U/L (<34); BILIRUBIN,TOTAL 0.7 MG/DL (0.3-1.2); BLOOD UREA NITROGEN 26 MG/DL (9-23); CALCIUM LEVEL 9.6 MG/DL (8.3-10.6); CARBON DIOXIDE LEVEL 30 MMOL/L (20-31); CHLORIDE LEVEL 100 MMOL/L (98-107); CHOLESTEROL LEVEL 162 MG/DL (<200); CHOLESTEROL RISK RATIO 2.81 (<5); GLOMERULAR FILTRATION RATE > 60.0 (>49); GLUCOSE, FASTING 110 MG/DL (74-106); HDL CHOLESTEROL 57.5 MG/DL (>40); LDL CHOLESTEROL 80.5 MG/DL (<100); NON-HDL-C 104.5 MG/DL; POTASSIUM SERUM 4.1 MMOL/L (3.5-5.1); SODIUM LEVEL 137 MMOL/L (136-145); TOTAL PROTEIN 6.9 G/DL (5.7-8.2); TRIGLYCERIDES LEVEL 120 MG/DL (<150)
== END ==
LOC: M LAB REF 16:18
PROVIDERS: ATTEND Pediatrics
DX: E78.5 Hyperlipidemia, unspecified (principal)

== ENCOUNTER → 2023-03-31 | Outpatient (REF) | payer MEDICARE, OTHER ==
[2023-03-31 12:18] LABS: ALBUMIN 4.1 G/DL (3.2-5.2); BILIRUBIN,DIRECT 0.2 MG/DL (<0.4); TOTAL PROTEIN 6.9 G/DL (5.7-8.2)
[2023-03-31 12:29] LABS: HEMOGLOBIN A1c 5.6 % (4.0-6.0)
== END ==
LOC: M LAB REF 11:31
PROVIDERS: ATTEND Pediatrics
DX: R73.9 Hyperglycemia, unspecified (principal); F10.10 Alcohol abuse, uncomplicated

== ENCOUNTER → 2023-09-02 | Outpatient (REF) | payer MEDICARE, OTHER ==
[2023-09-02 14:01] LABS: CREATININE, URINE 79.4 MG/DL; MALB URINE SIEMENS < 3.0 MG/L; MAU/CREAT RATIO 3.7 MCG/MG (0.0-30.0)
[2023-09-02 14:58] LABS: ALKALINE PHOSPHATASE 88 U/L (46-116); ALT/SGPT 28 U/L (7.0-40); AST/SGOT 21 U/L (<34); BILIRUBIN,TOTAL 0.3 MG/DL (0.3-1.2); BLOOD UREA NITROGEN 27 MG/DL (9-23); CALCIUM LEVEL 9.6 MG/DL (8.3-10.6); CARBON DIOXIDE LEVEL 29 MMOL/L (20-31); CHLORIDE LEVEL 104 MMOL/L (98-107); CHOLESTEROL LEVEL 222 MG/DL (<200); CREATININE FOR GFR 0.89 MG/DL (0.70-1.30); GLOMERULAR FILTRATION RATE > 60.0 (>49); GLUCOSE, FASTING 118 MG/DL (74-106); HDL CHOLESTEROL 45.3 MG/DL (>40); LDL CHOLESTEROL 134.7 MG/DL (<100); NON-HDL-C 176.7 MG/DL; POTASSIUM SERUM 4.5 MMOL/L (3.5-5.1); SODIUM LEVEL 139 MMOL/L (136-145); TOTAL PROTEIN 6.7 G/DL (5.7-8.2); TRIGLYCERIDES LEVEL 210 MG/DL (<150)
== END ==
LOC: M LAB REF 12:42
PROVIDERS: ATTEND Pediatrics
DX: I10 Essential (primary) hypertension (principal); E78.5 Hyperlipidemia, unspecified; Z12.5 Encounter for screening for malignant neoplasm of prostate
CPT/HCPCS: 80053; 80061; 82043; 84443; G0103

== ENCOUNTER → 2023-11-21 | Outpatient (REF) | payer MEDICARE, OTHER | LOC: M LAB REF 17:45 | PROVIDERS: ATTEND Surgery | DX: L72.0 Epidermal cyst (principal) ==

== ENCOUNTER → 2023-12-14 | Outpatient (CLI) | payer MEDICARE, OTHER | LOC: M WUC 11:39 | PROVIDERS: ATTEND Nurse Practitioner Family | DX: M25.522 Pain in left elbow (principal) ==

== ENCOUNTER → 2024-04-12 | Outpatient (REF) | payer MEDICARE, MEDICAID ==
[~2024-04-12] MED LIST changes: +DOXY-323 PO; -DOXY-443 PO; +ONDA-282 PO; -ONDA4TAB6 PO
== END ==
LOC: M SFHCCAPE 07:40
PROVIDERS: ATTEND Physician Assistant
DX: N52.8 Other male erectile dysfunction (principal)

== ENCOUNTER → 2024-04-23 | Outpatient (REF) | payer MEDICARE, MEDICAID ==
[2024-04-23 13:03] LABS: CREATININE, URINE 204.7 MG/DL; MAU/CREAT RATIO 8.7 MCG/MG (0.0-30.0)
[2024-04-23 13:56] LABS: ALBUMIN 4.1 G/DL (3.2-5.2); ALKALINE PHOSPHATASE 77 U/L (46-116); ALT/SGPT 25 U/L (7.0-40); AST/SGOT 25 U/L (<34); BILIRUBIN,DIRECT 0.3 MG/DL (<0.4); BILIRUBIN,TOTAL 1.1 MG/DL (0.3-1.2); BLOOD UREA NITROGEN 18 MG/DL (9-23); CALCIUM LEVEL 9.8 MG/DL (8.3-10.6); CARBON DIOXIDE LEVEL 31 MMOL/L (20-31); CHLORIDE LEVEL 105 MMOL/L (98-107); CHOLESTEROL LEVEL 150 MG/DL (<200); CHOLESTEROL RISK RATIO 2.46 (<5); CREATININE FOR GFR 1.13 MG/DL (0.70-1.30); GLOMERULAR FILTRATION RATE > 60.0 (>49); GLUCOSE, FASTING 110 MG/DL (74-106); HDL CHOLESTEROL 60.9 MG/DL (>40); LDL CHOLESTEROL 75.3 MG/DL (<100); NON-HDL-C 89.1 MG/DL; POTASSIUM SERUM 4.1 MMOL/L (3.5-5.1); SODIUM LEVEL 137 MMOL/L (136-145); TOTAL PROTEIN 6.7 G/DL (5.7-8.2); TRIGLYCERIDES LEVEL 69 MG/DL (<150)
== END ==
LOC: M LAB REF 12:14
PROVIDERS: ATTEND Pediatrics
DX: I10 Essential (primary) hypertension (principal); F10.10 Alcohol abuse, uncomplicated; E78.5 Hyperlipidemia, unspecified

== ENCOUNTER → 2025-01-04 | Outpatient (REF) | payer MEDICARE, MEDICAID ==
[~2025-01-04] MED LIST changes: -DOXY-323 PO; +DOXY-441 PO
[2025-01-04 17:30] LABS: CREATININE, URINE 90.7 MG/DL
[2025-01-04 17:31] LABS: MALB URINE SIEMENS < 3.0 MG/L
[2025-01-04 19:20] LABS: PSA SCREENING 0.73 NG/ML (< 4.00)
[2025-01-04 19:22] LABS: CHOLESTEROL RISK RATIO 3.05 (<5); CREATININE FOR GFR 1.04 MG/DL (0.70-1.30); GLOMERULAR FILTRATION RATE 78.2 (>49); HDL CHOLESTEROL 60.3 MG/DL (>40); LDL CHOLESTEROL 100.3 MG/DL (<100); NON-HDL-C 123.7 MG/DL; POTASSIUM SERUM 4.3 MMOL/L (3.5-5.1)
== END ==
LOC: M LAB REF 16:31
PROVIDERS: ATTEND Pediatrics
DX: I10 Essential (primary) hypertension (principal); E78.5 Hyperlipidemia, unspecified; Z12.5 Encounter for screening for malignant neoplasm of prostate
CPT/HCPCS: 80048; 80061; 82043; G0103

== ENCOUNTER → 2025-07-23 | Outpatient (CLI) | payer MEDICARE, MEDICAID ==
[~2025-07-23] MED LIST changes: -IBUP-1022 PO; +IBUP600T42 PO
== END ==
LOC: M CARPUL 09:48
PROVIDERS: ATTEND Pediatrics
DX: I10 Essential (primary) hypertension (principal); I08.3 Combined rheumatic disorders of mitral, aortic and tricuspid valves; I27.20 Pulmonary hypertension, unspecified; R00.1 Bradycardia, unspecified

== ENCOUNTER → 2025-08-08 | Outpatient (CLI) | payer MEDICARE, MEDICAID | LOC: M PLARAD 12:29 | PROVIDERS: ATTEND Pediatrics | DX: R42 Dizziness and giddiness (principal); R90.89 Other abnormal findings on diagnostic imaging of central nervous system ==

== ENCOUNTER → 2025-08-26 | Outpatient (CLI) | payer MEDICARE, MEDICAID | LOC: M PLAIMG 09:55 | PROVIDERS: ATTEND Pediatrics | DX: R90.89 Other abnormal findings on diagnostic imaging of central nervous system (principal) ==

== ENCOUNTER → 2025-09-03 | Outpatient (CLI) | payer MEDICARE, MEDICAID ==
[2025-09-03 11:21] LABS: VITAMIN B12 LEVEL 903 PG/ML (211-911)
[2025-09-04 09:17] LABS: T P ELECTROPHORESIS SO 7.0 g/dL (6.1-8.1)
[2025-09-05 08:12] LABS: ALBUMIN SPEP 4.5 g/dL (3.8-4.8); ALPHA-1-GLOBULINS SO 0.3 g/dL (0.2-0.3); ALPHA-2-GLOBULINS SO 0.7 g/dL (0.5-0.9); BETA 2 GLOBULIN 0.4 g/dL (0.2-0.5); BETA-GLOBULIN SO 0.4 g/dL (0.4-0.6); GAMMA GLOBULINS SO 0.7 g/dL (0.8-1.7)
[2025-09-07 03:52] LABS: VITAMIN E(ALPHA TOCOPHEROL) 20.5 mg/L (5.7-19.9); VITAMIN E(GAMMA TOCOPHEROL) < 1.0 mg/L (<=4.3)
[2025-09-07 16:38] LABS: VITAMIN B6,PYRIDOXAL PHOSPHATE 36.1 ng/mL (2.1-21.7)
[2025-09-09 17:07] LABS: VITAMIN B1 LEVEL WHOLE BLOOD 154 nmol/L (78-185)
== END ==
LOC: M LAB 09:28
PROVIDERS: ATTEND Psychiatry & Neurology Neurology
DX: R42 Dizziness and giddiness (principal)